=== PATIENT | female | born 1940 | race African-American/Black ===

== ENCOUNTER 2017-04-02 21:54 | Emergency (ER) | payer MEDICARE ==
[2017-04-02 23:03] LABS: #Eosinphils 0.1 thou/uL (0.0-0.7); #Lymphocytes 1.8 thou/uL (1.20-3.40); #Monocytes 0.6 thou/uL (0.11-0.59); #Neutrophils 4.3 thou/uL (1.40-6.50); %Basophils 0.1 % (0.0-1.0); %Eosinophils 1.4 % (0.0-10.0); %Lymphocytes 26.2 % (21.0-51.0); %Monocytes 8.6 % (0.0-10.0); Hematocrit 38.2 % (36.0-47.0); Mean Platelet Volume 6.8 fL (7.4-10.4); White Blood Cell (WBC) Count 6.7 thou/uL (4.8-10.8)
[2017-04-02 23:23] LABS: ALT (SGPT) 22 U/L (8-55); AST (SGOT) 27 U/L (5-34); Alkaline Phosphatase 121 U/L (40-150); Anion Gap 14 mmol/L (10-20); BUN (Urea Nitrogen) 17 mg/dL (9.8-20.1); Bilirubin, Total 0.6 mg/dL (0.2-1.2); Calc. Creatinine Clearance 0 mL/min (70-130); Carbon Dioxide 23 mmol/L (23-31); Chloride 104 mmol/L (98-107); Estimated GFR-MDRD 50; Globulin 3.7 g/dL (2.4-3.5); Protein, Total 7.4 g/dL (6.0-8.3)
[2017-04-02 23:27] LABS: Troponin I Less than 0.010 ng/mL (< 0.028)
--- NOTE | 2017-04-02 23:45 | RAD ---
EXAM: TWO VIEWS CHEST 04/02/17 HISTORY: Cough. COMPARISON: 12/04/15 FINDINGS: Two views chest: Elongation of the aorta. Enlarged cardiac silhouette. Pulmonary vessels are slightly prominent. Obsc uration of the right hemidiaphragm. Right lower lobe atelectasis or infiltrate is suspected. Adequat e aeration of the upper lungs. No pneumothorax. IMPRESSION: Partial obscuration of the right hemidiaphragm. Correlate for atelectasis versus infiltrate. Continu ed surveillance. POS: [facility]
== END 2017-04-03 01:09 | disposition home or self-care (01) ==
LOC: ERS 21:54
DX: J18.9 Pneumonia, unspecified organism (principal); E11.9 Type 2 diabetes mellitus without complications; I10 Essential (primary) hypertension; Z79.899 Other long term (current) drug therapy
CPT/HCPCS: 36415; 71020; 80053; 82553; 84484; 85025; 93005

== ENCOUNTER 2017-10-21 08:49 | Outpatient (CLI) | payer MEDICARE | END 2017-10-21 08:50 | disposition home or self-care (01) | LOC: BICRAD 08:49 | PROVIDERS: ATTEND Family Medicine | DX: M16.12 Unilateral primary osteoarthritis, left hip (principal); M47.896 Other spondylosis, lumbar region | CPT/HCPCS: 72100 ==

== ENCOUNTER 2017-10-26 03:43 | Emergency (ER) | payer MEDICARE ==
[2017-10-26 04:29] LABS: Bilirubin Negative (Negative); Blood, Urine Trace (Negative); Clarity CLEAR (Clear); Glucose, Urine (Dipstick) Negative (Negative); Leukocyte Trace (Negative); Nitrite Negative (Negative); Protein, Urine (Dipstick) 30 mg/dL (Neg-Trace); Specific Gravity, Urine 1.011 (1.002-1.036); Urobilinogen 0.2 mg/dL (0.2-1.0)
[2017-10-26 04:31] LABS: Bacteria/HPF None Seen HPF (None Seen); Hyaline Casts/LPF 0-3 HYALINE CAST LPF (0-3 Hyaline); Pathc Cast-AUWi Flag 0.43 (0-2.49); RBC/HPF 0-3 HPF (0-3); Squamous Epithelial 0-3 HPF (0-3)
[2017-10-26 04:35] LABS: #Eosinphils 0.1 thou/uL (0.0-0.7); #Lymphocytes 1.6 thou/uL (1.20-3.40); #Monocytes 0.6 thou/uL (0.11-0.59); %Basophils 0.4 % (0.0-1.0); %Eosinophils 1.2 % (0.0-10.0); %Lymphocytes 17.5 % (21.0-51.0); %Monocytes 6.2 % (0.0-10.0); %Neutrophils 74.8 % (42.0-75.0); Hemoglobin 12.4 g/dL (12.0-16.0); Mean Corpuscular HGB CONC 32.4 g/dL (32.0-36.0); Mean Corpuscular Hemoglobin 30.3 pg (27.0-31.0); Mean Corpuscular Volume 93.5 fl (81.0-99.0); Mean Platelet Volume 6.6 fL (7.4-10.4); Platelet Count 317 thou/uL (130-400); RBC Distribution Width 12.7 % (11.5-14.5); White Blood Cell (WBC) Count 9.3 thou/uL (4.8-10.8)
[2017-10-26 04:49] LABS: ALT (SGPT) 19 U/L (8-55); AST (SGOT) 22 U/L (5-34); Albumin 4.2 g/dL (3.4-4.8); Alkaline Phosphatase 103 U/L (40-150); Anion Gap 11 mmol/L (10-20); BUN (Urea Nitrogen) 14 mg/dL (9.8-20.1); Bilirubin, Total 0.8 mg/dL (0.2-1.2); Calc. Creatinine Clearance 0 mL/min (70-130); Calcium 9.4 mg/dL (7.8-10.44); Carbon Dioxide 26 mmol/L (23-31); Chloride 107 mmol/L (98-107); Estimated GFR-MDRD 59; Globulin 3.6 g/dL (2.4-3.5); Glucose 149 mg/dL (83-110); Potassium 3.6 mmol/L (3.5-5.1); Protein, Total 7.8 g/dL (6.0-8.3); Sodium 140 mmol/L (136-145)
[2017-10-26 05:10] LABS: CKMB 1.9 ng/mL (0-6.6); Troponin I Less than 0.010 ng/mL (< 0.028)
--- NOTE | 2017-10-26 08:06 | RAD ---
PORTABLE CHEST 1 VIEW: DATE: 10/26/17. TIME: 4:08 a.m. HISTORY: Dizziness, high blood pressure. FINDINGS: Comparison is made with the exam of 12/04/15. The heart size is borderline. The aorta is tortuous. The lungs are expanded without confluent areas of consolidation, pneumothorax, oneal pulmonary edema, or pleural effusions. IMPRESSION: No acute process. POS: [facility]
--- NOTE | 2017-11-13 14:57 | EKG ---
Test Reason : DIZZINESS Blood Pressure : / mmHG Vent. Rate : 059 BPM Atrial Rate : 059 BPM P-R Int : 264 ms QRS Dur : 154 ms QT Int : 472 ms P-R-T Axes : 033 -08 105 degrees QTc Int : 467 ms Sinus bradycardia with 1st degree A-V block Left bundle branch block Abnormal ECG When compared with ECG of 02-APR-2017 No changes Confirmed by CORY BRYAN, KEYA Matamoros ([id number]), primer expeditor and drier YOJANA MOREAU ([id number]) on 11/13/2017 2:57:13 PM Referred By: CORY Confirmed By:KEYA RAY MD
== END 2017-10-26 06:04 | disposition home or self-care (01) ==
LOC: ERS 03:43
DX: R55 Syncope and collapse (principal); E11.9 Type 2 diabetes mellitus without complications; I10 Essential (primary) hypertension; Z79.899 Other long term (current) drug therapy; Z79.84 Long term (current) use of oral hypoglycemic drugs; Z79.82 Long term (current) use of aspirin
CPT/HCPCS: 36415; 36416; 71045; 80053; 81003; 81015; 82553; 83735; 84484; 85025; 93005

== ENCOUNTER 2017-10-26 13:22 | Outpatient (CLI) | payer MEDICARE | END 2017-10-26 13:23 | disposition home or self-care (01) | LOC: BICRAD 13:22 | PROVIDERS: ATTEND Family Medicine | DX: R55 Syncope and collapse (principal) | CPT/HCPCS: 93880 ==

== ENCOUNTER 2018-01-17 07:09 | Outpatient (CLI) | payer MEDICARE | END 2018-01-17 07:10 | disposition home or self-care (01) | LOC: BICULT 07:09 | PROVIDERS: ATTEND Internal Medicine Nephrology | DX: N18.3 Chronic kidney disease, stage 3 (moderate) (principal); N28.1 Cyst of kidney, acquired | CPT/HCPCS: 76770 ==

== ENCOUNTER 2018-11-05 18:47 | Observation (INO) | payer MEDICARE ==
[2018-11-05] MEDS ORDERED: Nitroglycerin 2% Ointment 1 INCH/1 GM Packet ONE (18:58)
[2018-11-05] MEDS ORDERED: Nitroglycerin 0.4 MG TAB 1 EACH ONE (18:58)
[2018-11-05] MEDS ORDERED: Aspirin Chewable 81 MG TAB ONE (18:58)
[2018-11-05 19:09] LABS: #Basophils 0.1 thou/uL (0.0-0.2); #Eosinphils 0.1 thou/uL (0.0-0.7); #Lymphocytes 2.4 thou/uL (1.20-3.40); #Monocytes 0.8 thou/uL (0.11-0.59); #Neutrophils 7.3 thou/uL (1.40-6.50); %Basophils 0.5 % (0.0-1.0); %Eosinophils 1.3 % (0.0-10.0); %Lymphocytes 22.9 % (21.0-51.0); %Monocytes 7.2 % (0.0-10.0); %Neutrophils 68.1 % (42.0-75.0); Hemoglobin 12.3 g/dL (12.0-16.0); Mean Corpuscular HGB CONC 33.1 g/dL (32.0-36.0); Mean Corpuscular Hemoglobin 30.9 pg (27.0-31.0); Mean Corpuscular Volume 93.2 fL (78.0-98.0); Mean Platelet Volume 7.1 fL (7.4-10.4); Platelet Count 333 thou/uL (130-400); RBC Distribution Width 12.9 % (11.5-14.5); Red Blood Cell (RBC) Count 3.98 mill/uL (4.20-5.40); White Blood Cell (WBC) Count 10.7 thou/uL (4.8-10.8)
--- NOTE | 2018-11-05 19:18 | RAD ---
PORTABLE CHEST: 11/05/18 HISTORY: Chest pain. COMPARISON: 10/26/17. FINDINGS/IMPRESSION: Lungs appear clear of confluent infiltrate. Heart size is mildly prominent but stable. Vascularity is within normal range. No acute process or interval change noted. POS: [facility]
[2018-11-05 19:33] LABS: ALT (SGPT) 16 U/L (8-55); AST (SGOT) 18 U/L (5-34); Albumin 4.3 g/dL (3.4-4.8); Alkaline Phosphatase 109 U/L (40-150); Anion Gap 15 mmol/L (10-20); BUN (Urea Nitrogen) 19 mg/dL (9.8-20.1); Bilirubin, Total 0.6 mg/dL (0.2-1.2); CK (CPK) 191 U/L (29-168); Calc. Creatinine Clearance 0 mL/min (70-130); Calcium 9.8 mg/dL (7.8-10.44); Carbon Dioxide 22 mmol/L (23-31); Chloride 106 mmol/L (98-107); Estimated GFR-MDRD 44; Globulin 3.9 g/dL (2.4-3.5); Glucose 152 mg/dL (83-110); Potassium 3.8 mmol/L (3.5-5.1); Protein, Total 8.2 g/dL (6.0-8.3); Sodium 139 mmol/L (136-145)
--- NOTE | 2018-11-05 20:31 | PDOC.FPRHP ---
- History of Present Illness Chief Complaint: Chest pain History of Present Illness: This is an 78 yo female with a pmh of CAD with previous stent placement, HTN, DM2 who presents to the ED with a cc of chest pain. She reports that the pain is sharp and left sided. She states the pain would last for a few seconds and then go away. She reports she was at rest when the pain started around 1300 today. The pain is not like her previous chest pain when she required stents. She denies current pain. She denies radiation, nausea, vomiting, or SOB. She reports some diaphoresis. ED Course: Nitro paste, aspirin - Allergies/Adverse Reactions Allergies Allergy/AdvReac Type Severity Reaction Status Date / Time No Known Allergies Allergy Verified 11/05/18 21:32 - Home Medications Medication Instructions Recorded Confirmed Type Amlodipine [Norvasc] 10 mg PO DAILY 11/05/18 11/05/18 History Aspirin [Ecotrin] 81 mg PO DAILY 11/05/18 11/05/18 History Glimepiride 4 mg PO BID 11/05/18 11/05/18 History Isosorbide Mononitrate [Isosorbide 60 mg PO DAILY 11/05/18 11/05/18 History Mononitrate ER] Losartan Potassium 50 mg PO DAILY 11/05/18 11/05/18 History Multivitamin [Multiple Vitamins] 1 tab PO DAILY 11/05/18 11/05/18 History Rosuvastatin Calcium 10 mg PO HS 11/05/18 11/05/18 History - History PMHx: HTN, CAD with previous Stents, DM2 PSHx: Previous stent FHx: Noncontributory Social: Denies MACI - Review of Systems General: denies: fever/chills, weight/appetite/sleep changes, night sweats, fatigue Eyes: denies: eye pain, vision changes ENT: denies: nasal congestion, rhinorrhea Respiratory: denies: cough, congestion, shortness of breath Cardiovascular: reports: chest pain. denies: palpitation, edema Gastrointestinal: denies: nausea, vomiting, diarrhea, constipation, abdominal pain Skin: denies: rashes, lesions Musculoskeletal: denies: pain, tenderness Neurological: denies: numbness, syncope, weakness Psychological: denies: anxiety, depression - Vital signs BP: 138/73 HR: 72 RR: 18 Tmax: 98.6 Pox: 99% on RA Wt: 102.5 kg - Physical Exam Constitutional: NAD, awake, alert and oriented, well developed HEENT: normocephalic and atraumatic, PERRLA, MMM Neck: supple, trachea midline, no JVD Chest: no-tender to palpation Heart: RRR, normal S1/S2, no murmurs/rubs/gallops, pulses present Lungs: CTAB, no respiratory distress, no wheezing Abdomen: soft, non-tender, bowel sounds present Musculoskeletal: normal structure, normal tone Neurological: no focal deficit, normal sensation Skin: no rash/lesions, good turgor Heme/Lymphatic: no unusual bruising or bleeding Psychiatric: normal mood and affect, good judgment and insight FMR H&P: Results - Labs Result Diagrams: 11/05/18 19:00 11/06/18 01:20 Lab results: WBC 10.7 thou/uL (4.8-10.8) 11/05/18 19:00 Hgb 12.3 g/dL (12.0-16.0) 11/05/18 19:00 Hct 37.1 % (36.0-47.0) 11/05/18 19:00 MCV 93.2 fL (78.0-98.0) 11/05/18 19:00 Plt Count 333 thou/uL (130-400) 11/05/18 19:00 Neutrophils % 68.1 % (42.0-75.0) 11/05/18 19:00 Sodium 139 mmol/L (136-145) 11/05/18 19:00 Potassium 3.8 mmol/L (3.5-5.1) 11/05/18 19:00 Chloride 106 mmol/L (98-107) 11/05/18 19:00 Carbon Dioxide 22 mmol/L (23-31) L 11/05/18 19:00 BUN 19 mg/dL (9.8-20.1) 11/05/18 19:00 Creatinine 1.40 mg/dL (0.6-1.1) H 11/05/18 19:00 Glucose 152 mg/dL (83-110) H 11/05/18 19:00 Calcium 9.8 mg/dL (7.8-10.44) 11/05/18 19:00 Total Bilirubin 0.6 mg/dL (0.2-1.2) 11/05/18 19:00 AST 18 U/L (5-34) 11/05/18 19:00 ALT 16 U/L (8-55) 11/05/18 19:00 Alkaline Phosphatase 109 U/L (40-150) 11/05/18 19:00 Creatine Kinase 191 U/L (29-168) H 11/05/18 19:00 B-Natriuretic Peptide 30.5 pg/mL (0-100) 11/05/18 19:00 Serum Total Protein 8.2 g/dL (6.0-8.3) 11/05/18 19:00 Albumin 4.3 g/dL (3.4-4.8) 11/05/18 19:00 - EKG Interpretation EKG: Sinus rhythm, 1st degree AV block, LBBB unchanged from before, HR 86 - Radiology Interpretation Chest x-ray Status: report reviewed by me (No acute process) FMR H&P: A/P - Problem List (1) Atypical chest pain Current Visit: Yes Status: Acute Code(s): R07.89 - OTHER CHEST PAIN (2) HTN (hypertension) Current Visit: Yes Status: Acute Code(s): I10 - ESSENTIAL (PRIMARY) HYPERTENSION (3) DM2 (diabetes mellitus, type 2) Current Visit: Yes Status: Acute (4) CAD (coronary artery disease) Current Visit: Yes Status: Acute Code(s): I25.10 - ATHSCL HEART DISEASE OF [place] CORONARY ARTERY W/O ANG PCTRS (5) HLD (hyperlipidemia) Current Visit: Yes Status: Acute Code(s): E78.5 - HYPERLIPIDEMIA, UNSPECIFIED - Plan This is an 78 yo female with a pmh of CAD with previous stent placement, HTN, DM2 Atypical Chest pain , rule out ACS -Admit to tele obs -CXR shows no acute cardioplumonary processes -Troponin negative x1 will trend x3 total -Heart score of 5 -Pt reports normal stress test at Dr. Morales's office, Dr. Morales confirms Stress test EF 58%, no ischemia, likely discharge in the AM -Pt reports Dr. Morales is her cardilogist HTN -Continue home meds DM2 -Continue home meds -ACHS gluchecks, SSI -Hypogylcemic protocol CAD -Continue home meds HLD -Continue home meds MARS vs CKD -No recent studies to compare, will recheck in the morning Code: DNAR Prophylaxis: SCDs Family: none at bedside Fluids: SL Diet: HH, CC, NPO after midnight Disposition: DC in 1-2 days PCP: Dr. Bundy FMR H&P: Upper Level - Pertinent history 78F presents for evaluation of atypical chest pain that started at approx 1300 hour day of admission. It occurred after she ate. She was laying down when she had a sharp chest pain, left side, no radiation, lasts for a few seconds and resolved spontaneously. At time of this interview, she state it was possibly her acid reflux. She state she had stress test last year that was normal with no ischemia or reduce EF, confirmed by her journeyman pressman, Dr. Morales. In ER, receive 0.4 nitroglycerin, nitro paste, aspirin. - Pertinent findings Gen: Alert, oriented, not in acute distress CV: No pain on palpation of chest wall, RRR with no obvious m/g/r Resp: CTA bilat, unlabored breathing GI: Normoactive, no pain on palpation, no masses felt - Plan Date/Time: 11/05/182027 I, [Joshua Romero], have evaluated this patient and agree with findings/plan as outlined by rn internal medicine resident. Pertinent changes/additions are listed here. See rn internal medicine note for chronic issue. 1. Atypical chest pain: Has heart score of 5, due to hx of CAD, nonspecific EKG finding of LBBB, and age. Trop x1 is neg Plan to obs overnight, continue to trend trop x3 Due to normal stress test within year, doubt cardiac causes and patient endorse it feels like GERD. 2. MARS - Cr 1.4, mild elevation above her typical baseline of 1.2. - Encourage oral hydration at this point in time. Addendum - Attending - Attending Attestation Date/Time: 11/05/18 [id number] I personally evaluated the patient and discussed the management with Dr. Barclay. I agree with the History, Examination, Assessment and Plan documented above with any addition or exceptions noted below. The patient presented with brief episode of chest pain. She had recent stress test and enzymes are negative. Will continue to trend. Dr. Barclay spoke with her journeyman pressman, Dr. Morales who verified the recent normal stress. Will monitor overnight and likely d/c in the am.
[2018-11-05] MEDS ORDERED: Ondansetron ODT 4 MG TAB PO PRN (21:17)
[2018-11-05] MEDS ORDERED: Dextrose 50% Abboject 50 ML SYRINGE SLOW IVP PRN (21:17)
[2018-11-05] MEDS ORDERED: Acetaminophen 650 MG Suppository PR PRN (21:17)
[2018-11-05] MEDS ORDERED: Acetaminophen 325 MG TAB PO PRN (21:17)
[2018-11-05] MEDS ORDERED: HumaLOG 300 UNITS/3 ML VIAL SC PRN ×2 (21:17)
[2018-11-05] MEDS ORDERED: Ondansetron PF 4 MG/2 ML Vial IVP PRN (21:17)
[2018-11-05] MEDS ORDERED: Dextrose 5% in Water 1,000 ML IV PRN (21:17)
[2018-11-05 21:27] VITALS: BMI 29.7
[2018-11-05 22:39] LABS: Troponin I Less than 0.010 ng/mL (< 0.028)
[2018-11-06 01:50] LABS: Anion Gap 13 mmol/L (10-20); BUN (Urea Nitrogen) 19 mg/dL (9.8-20.1); Calc. Creatinine Clearance 54 mL/min (70-130); Calcium 9.4 mg/dL (7.8-10.44); Carbon Dioxide 25 mmol/L (23-31); Chloride 108 mmol/L (98-107); Estimated GFR-MDRD 47; Glucose 105 mg/dL (83-110); Potassium 3.9 mmol/L (3.5-5.1); Sodium 142 mmol/L (136-145)
[2018-11-06 01:53] LABS: Troponin I Less than 0.010 ng/mL (< 0.028)
--- NOTE | 2018-11-06 07:52 | PDOC.FM ---
- Subjective Subjective: Pt denies current CP, reports her pain yesterday felt like her GERD that she has hx of. She reports it happened after eating greasy sausages. No new complaints. Pt desires to go home. - Objective Vital Signs & Weight: Vital Signs (12 hours) Temp Pulse Resp BP Pulse Ox 11/06/18 05:05 98.2 F 67 16 126/57 L 97 11/05/18 21:17 98 11/05/18 21:15 98.1 F 64 16 164/73 H 98 Weight Weight 99.427 kg I&O: 11/05/18 11/06/18 11/07/18 06:59 06:59 06:59 Intake Total 240 Output Total 700 Balance -460 Result Diagrams: 11/05/18 19:00 11/06/18 01:20 Phys Exam - Physical Examination Constitutional: NAD HEENT: moist MMs, sclera anicteric Neck: no JVD, supple Respiratory: no wheezing, clear to auscultation bilateral Cardiovascular: RRR, no significant murmur Gastrointestinal: soft, non-tender Musculoskeletal: no edema, pulses present Neurological: normal sensation, moves all 4 limbs Psychiatric: normal affect, A&O x 3 Skin: no rash, normal turgor Dx/Plan (1) Atypical chest pain Code(s): R07.89 - OTHER CHEST PAIN Status: Acute (2) CAD (coronary artery disease) Code(s): I25.10 - ATHSCL HEART DISEASE OF [place] CORONARY ARTERY W/O ANG PCTRS Status: Acute (3) DM2 (diabetes mellitus, type 2) Status: Acute (4) HLD (hyperlipidemia) Code(s): E78.5 - HYPERLIPIDEMIA, UNSPECIFIED Status: Acute (5) HTN (hypertension) Code(s): I10 - ESSENTIAL (PRIMARY) HYPERTENSION Status: Acute - Plan Plan: Atypical Chest pain A- likely 2/2 GERD, pt was previously controlled with diet but had laps in dietary restrictions. trops negxx3. CXR shows no acute cardioplumonary processes. Pt reports normal stress test at Dr. Morales's office, Dr. Morales confirms Stress test EF 58%, no ischemia P- likely DC today -resume GERD diet HTN -Continue home meds DM2 -Continue home meds -ACHS gluchecks, SSI -Hypogylcemic protocol CAD -Continue home meds HLD -Continue home meds MARS vs CKD -No recent studies to compare, will recheck in the morning, f/u outpt, PO hydration Code: DNAR Addendum - Attending - Attending Attestation Date/Time: 11/06/18 6030 I personally evaluated the patient and discussed the management with Dr. Hernandez. I agree with the History, Examination, Assessment and Plan documented above with any addition or exceptions noted below. Pt's cardiac enzymes are negative. She has an up to date negative stress test. Will d/c home. Pain likely due to gerd.
[2018-11-06 07:57] VITALS: BP 173/81; TEMP 98.3
[2018-11-06] MEDS ORDERED: Amlodipine 10 MG TAB PO SCH (09:00)
[2018-11-06] MEDS ORDERED: Aspirin 81 mg Enteric Coated Tablet PO SCH (09:00)
[2018-11-06] MEDS ORDERED: Glimepiride 4 MG TAB PO SCH (09:00)
[2018-11-06] MEDS ORDERED: Losartan 25 MG TAB PO SCH (09:00)
[2018-11-06] MEDS ORDERED: Rosuvastatin 10 MG TAB PO SCH (21:00)
--- NOTE | 2018-11-07 14:22 | DIS ---
DATE OF ADMISSION: 11/05/2018 DATE OF DISCHARGE: 11/06/2018 RESIDENT: Rickey Hernandez MD ADMITTING ATTENDING: Diana Cerna MD DISCHARGE ATTENDING: Diana Cerna MD CONSULTS: None. PROCEDURES: On 11/05/2018, chest x-ray, impression; lungs appear clear of confluent infiltrate mildly prominent but stable. Vascularity is within normal range. No acute processes or interval changes noted. DISCHARGE MEDICATIONS: 1. Aspirin 81 mg p.o. daily. 2. Isosorbide mononitrate 60 mg p.o. daily. 3. Glimepiride 4 mg p.o. b.i.d. 4. Amlodipine 10 mg p.o. daily. 5. Rosuvastatin 10 mg p.o. at bedtime. 6. Losartan 50 mg p.o. daily. 7. Multi-Rachael. DISCONTINUED MEDICATIONS: None. PRIMARY DIAGNOSIS: Atypical chest pain secondary to gastroesophageal reflux disease. SECONDARY DIAGNOSES: Hypertension, type 2 diabetes, coronary artery disease, hyperlipidemia, acute kidney disease versus chronic kidney disease. HISTORY OF PRESENT ILLNESS/HOSPITAL COURSE: This is an 78-year-old female, who presented to the ER for complaint of chest pain. The patient was admitted for chest pain rule out myocardial infarction and workup was negative with negative troponins. Chest x-ray, EKG, the patient does have history of coronary artery disease. However, chest pain in this case was found to be extremely atypical. The patient eventually did report that her pain was burning in nature and she has history of gastroesophageal reflux, they actually felt exactly like that. Previously her GERD had been controlled with diet alone. However, the day and hours prior to the onset of this chest pain, the patient had eaten a lot of greasy sausages. Plan for outpatient stress test was discussed with the patient, who verbalized understanding and as patient was in stable condition, was discharged home. DISPOSITION: Stable. DISCHARGE INSTRUCTIONS: 1. Location: Home. 2. Activity: As tolerated. 3. Diet: Heart healthy with low sodium. 4. Followup: Follow up with Dr. Medhat Bundy in 7 days. Recommend outpatient stress test. Job ID: [id number]
== END 2018-11-06 10:43 | disposition home or self-care (01) ==
LOC: ERS 18:47 → 2SW 21:13
PROVIDERS: ADMIT Family Medicine; ATTEND Family Medicine
DX: R07.89 Other chest pain (principal); I10 Essential (primary) hypertension; E78.5 Hyperlipidemia, unspecified; E11.9 Type 2 diabetes mellitus without complications; I25.10 Atherosclerotic heart disease of native coronary artery without angina pectoris; N17.9 Acute kidney failure, unspecified; I44.7 Left bundle-branch block, unspecified; K21.9 Gastro-esophageal reflux disease without esophagitis; Z95.5 Presence of coronary angioplasty implant and graft; Z79.82 Long term (current) use of aspirin; Z79.84 Long term (current) use of oral hypoglycemic drugs; Z79.899 Other long term (current) drug therapy
CPT/HCPCS: 71045; 80048; 80053; 82550; 82962; 83880; 84484 ×3; 85025; 93005; 94760 ×2; 99285; G0378 ×2; 36415; 36416

== ENCOUNTER 2020-04-09 14:29 | Emergency (ER) | payer MEDICARE ==
[2020-04-09 16:19] LABS: #Basophils 0.1 thou/uL (0.0-0.2); #Eosinphils 0.1 thou/uL (0.0-0.7); #Lymphocytes 1.9 thou/uL (1.20-3.40); #Monocytes 0.7 thou/uL (0.11-0.59); #Neutrophils 7.5 thou/uL (1.40-6.50); %Basophils 0.6 % (0.0-1.0); %Eosinophils 1.2 % (0.0-10.0); %Lymphocytes 18.1 % (21.0-51.0); %Monocytes 6.7 % (0.0-10.0); %Neutrophils 73.4 % (42.0-75.0); Hemoglobin 12.3 g/dL (12.0-16.0); Mean Corpuscular HGB CONC 31.5 g/dL (32.0-36.0); Mean Corpuscular Hemoglobin 30.1 pg (27.0-31.0); Mean Corpuscular Volume 95.6 fL (78.0-98.0); Mean Platelet Volume 6.9 fL (7.4-10.4); Platelet Count 340 thou/uL (130-400); RBC Distribution Width 12.5 % (11.5-14.5); Red Blood Cell (RBC) Count 4.08 mill/uL (4.20-5.40); White Blood Cell (WBC) Count 10.2 thou/uL (4.8-10.8)
[2020-04-09 16:40] LABS: ALT (SGPT) 13 U/L (8-55); AST (SGOT) 23 U/L (5-34); Alkaline Phosphatase 115 U/L (40-110); Anion Gap 14 mmol/L (10-20); BUN (Urea Nitrogen) 16 mg/dL (9.8-20.1); Bilirubin, Total 0.6 mg/dL (0.2-1.2); Calc. Creatinine Clearance 0 mL/min (70-130); Carbon Dioxide 26 mmol/L (23-31); Chloride 105 mmol/L (98-107); Estimated GFR-MDRD 44; Globulin 3.7 g/dL (2.4-3.5); Glucose 164 mg/dL (83-110); Potassium 3.9 mmol/L (3.5-5.1); Protein, Total 7.7 g/dL (6.0-8.3); Sodium 141 mmol/L (136-145)
--- NOTE | 2020-04-09 16:43 | RAD ---
PORTABLE CHEST: 04/09/20 HISTORY: Shortness of breath. COMPARISON: 11/05/18. Lungs appear clear. No infiltrate or vascular congestion. Heart and mediastinum unremarkable. IMPRESSION: No acute lung process identified. POS: [facility]
[2020-04-10 05:45] LABS: SARS-CoV-2 MS2 Positive; SARS-CoV-2 N Gene Negative; SARS-CoV-2 S Gene Negative; SARS-CoV-2 by NAA Not Detected (NotDetected); SARS-CoV-2 orf1ab Negative
== END 2020-04-09 18:10 | disposition home or self-care (01) ==
LOC: ERS 14:29
DX: B34.9 Viral infection, unspecified (principal); Z20.828 Contact with and (suspected) exposure to other viral communicable diseases; E11.9 Type 2 diabetes mellitus without complications; I10 Essential (primary) hypertension
CPT/HCPCS: 71045; 80053; 85025; 87804 ×2; 99283; U0003; 36415; 87635

== ENCOUNTER 2021-10-21 09:36 | Emergency (ER) | payer MEDICARE ==
[2021-10-21 10:03] LABS: #Eosinphils 0.2 thou/uL (0.0-0.7); #Lymphocytes 1.6 thou/uL (1.20-3.40); #Monocytes 0.6 thou/uL (0.11-0.59); #Neutrophils 7.7 thou/uL (1.40-6.50); %Basophils 0.4 % (0.0-1.0); %Eosinophils 1.7 % (0.0-10.0); %Lymphocytes 15.5 % (21.0-51.0); %Monocytes 6.1 % (0.0-10.0); %Neutrophils 76.4 % (42.0-75.0); Hemoglobin 11.9 g/dL (12.0-16.0); Mean Corpuscular HGB CONC 31.4 g/dL (32.0-36.0); Mean Corpuscular Hemoglobin 30.5 pg (27.0-31.0); Mean Corpuscular Volume 97.2 fL (78.0-98.0); Mean Platelet Volume 6.9 fL (7.4-10.4); Platelet Count 342 thou/uL (130-400); RBC Distribution Width 13.1 % (11.5-14.5)
[2021-10-21 10:27] LABS: ALT (SGPT) 16 U/L (8-55); AST (SGOT) 19 U/L (5-34); Albumin 3.9 g/dL (3.4-4.8); Alkaline Phosphatase 107 U/L (40-110); Anion Gap 13 mmol/L (10-20); BUN (Urea Nitrogen) 28 mg/dL (9.8-20.1); Bilirubin, Total 0.9 mg/dL (0.2-1.2); Calc. Creatinine Clearance 0 mL/min (70-130); Calcium 9.3 mg/dL (7.8-10.44); Carbon Dioxide 23 mmol/L (23-31); Chloride 109 mmol/L (98-107); Globulin 3.7 g/dL (2.4-3.5); Glucose 247 mg/dL (83-110); Potassium 3.8 mmol/L (3.5-5.1); Protein, Total 7.6 g/dL (5.8-8.1); Sodium 141 mmol/L (136-145)
== END 2021-10-21 13:45 | disposition home or self-care (01) ==
LOC: ERS 09:36
DX: R07.9 Chest pain, unspecified (principal); R05.9 Cough, unspecified; E11.9 Type 2 diabetes mellitus without complications; I10 Essential (primary) hypertension
CPT/HCPCS: 36415; 71046; 80053; 83690; 83880; 84484; 85025; 93005

== ENCOUNTER 2022-04-26 01:09 | Emergency (ER) | payer MEDICARE ==
[2022-04-26 01:41] LABS: Bacteria/HPF None Seen HPF (None Seen); Bilirubin Negative (Negative); Blood, Urine Negative (Negative); Clarity Clear (Clear); Glucose, Urine (Dipstick) Greater than 1000 mg/dL (Negative); Ketone, Urine Negative (Negative); Leukocyte 25 Leu/uL (Negative); Nitrite Negative (Negative); Protein, Urine (Dipstick) 30 mg/dL (Neg-Trace); RBC/HPF 0-3 HPF (0-3); Specific Gravity, Urine 1.023 (1.002-1.036); Squamous Epithelial 0-3 HPF (0-3); Urobilinogen Normal mg/dL (Less than 2); pH, Urine 5.5 (5.0-9.0)
== END 2022-04-26 02:46 | disposition left against medical advice (07) ==
LOC: ERS 01:09
DX: Z53.21 Procedure and treatment not carried out due to patient leaving prior to being seen by health care provider (principal)
CPT/HCPCS: 81003; 81015

== ENCOUNTER 2022-08-14 15:11 | Emergency (ER) | payer MEDICARE ==
[2022-08-14 16:11] LABS: #Monocytes 0.6 thou/uL (0.11-0.59); #Neutrophils 6.5 thou/uL (1.40-6.50); %Basophils 0.2 % (0.0-1.0); %Eosinophils 0.5 % (0.0-10.0); %Lymphocytes 12.7 % (21.0-51.0); %Monocytes 6.7 % (0.0-10.0); %Neutrophils 79.8 % (42.0-75.0); Hemoglobin 11.9 g/dL (12.0-16.0); Mean Corpuscular HGB CONC 31.7 g/dL (32.0-36.0); Mean Corpuscular Hemoglobin 30.5 pg (27.0-31.0); Mean Corpuscular Volume 96.2 fl (78.0-98.0); Platelet Count 387 10x3/uL (130-400); RBC Distribution Width 13.6 % (11.5-14.5); Red Blood Cell (RBC) Count 3.92 mill/uL (4.20-5.40); White Blood Cell (WBC) Count 8.1 10x3/uL (4.8-10.8)
[2022-08-14 17:16] LABS: ALT (SGPT) 14 U/L (8-55); AST (SGOT) 18 U/L (5-34); Albumin 3.9 g/dL (3.4-4.8); Alkaline Phosphatase 107 U/L (40-110); Anion Gap 14 mmol/L (10-20); BUN (Urea Nitrogen) 16 mg/dL (9.8-20.1); Bilirubin, Total 0.4 mg/dL (0.2-1.2); Calc. Creatinine Clearance 0 mL/min (70-130); Calcium 9.8 mg/dL (7.8-10.44); Carbon Dioxide 23 mmol/L (23-31); Chloride 109 mmol/L (98-107); Estimated GFR 45; Globulin 3.2 g/dL (2.4-3.5); Glucose 85 mg/dL (83-110); Protein, Total 7.1 g/dL (5.8-8.1); Sodium 142 mmol/L (136-145)
== END 2022-08-14 19:18 | disposition home or self-care (01) ==
LOC: ERS 15:11
DX: R12 Heartburn (principal); K21.9 Gastro-esophageal reflux disease without esophagitis; I10 Essential (primary) hypertension; E11.9 Type 2 diabetes mellitus without complications; Z79.82 Long term (current) use of aspirin; Z79.899 Other long term (current) drug therapy
CPT/HCPCS: 36415; 71045; 80053; 84484; 85025; 93005